=== PATIENT | female | born 1995 | race Caucasian/White ===

== ENCOUNTER 2016-12-01 05:55 | Inpatient (IN) | payer OTHER, MEDICAID ==
[~2016-12-01] VITALS: Ht 162.6 cm; Wt 106.6 kg
--- NOTE | ~2016-12-01 | FD ---
ADMIT: 12/01/2016 RM/LOC: 228 [facility] MR#: [id number] [address] WILMAN CUTLER [address] [address] Final Diagnosis SEX: F AGE: 21 : 1995 ADMISSION DATE: 12/01/2016 DISCHARGE DATE: 12/02/2016 FINAL DIAGNOSES: 1. Intrauterine , 39 weeks 0/7 days. 2. Status post spontaneous vaginal delivery of a liveborn female born at 1417 hours with weight of 7 pounds 9.5 ounces, and scores of 8 and 8 at 1 and 5 minutes respectively. Jose Marcelo MD/ suel JOB #: [id number] CC: Jose Marcelo MD, Attending Physician Jose Marcelo MD, Family Physician
--- NOTE | ~2016-12-01 | HP ---
ADMIT: 12/01/2016 RM/LOC: 228 [facility] MR#: [id number] [id number] [address] [place] [address] History and Physical SEX: F AGE: 21 : 1995 DATE OF SERVICE: CHIEF COMPLAINT: Contractions. HISTORY OF PRESENT ILLNESS: Wilman is a very pleasant 21-year-old, 2, para 1, with intrauterine at 39 weeks and 0/7 days, presented to Labor and Delivery early this morning with complaints of contractions. They started approximately at 0330 hours this morning and progressively intensified, therefore, she presented for evaluation. She was found to be in active labor, membranes intact and approximately 6 cm dilated, around 630 this morning. Her has been uncomplicated. She is Rh negative and did receive RhoGAM. Otherwise, she has faithfully followed up with routine care. PAST MEDICAL HISTORY: Benign. MEDICATIONS: vitamin and Diclegis. ALLERGIES: NO KNOWN DRUG ALLERGIES. PREVIOUS HISTORY: Vaginal delivery in 2014 of a male . SOCIAL HISTORY: No alcohol, drug, or tobacco use. Father of the baby involved. FAMILY HISTORY: Noncontributory. REVIEW OF SYSTEMS: A 10-point review of systems obtained per HPI, otherwise negative. PHYSICAL EXAMINATION: VITAL SIGNS: Blood pressure 124/79, pulse 97, respirations 16, temperature 97.3. GENERAL: Alert and oriented x3. Does not appear in any acute distress. She has received her epidural, seems to be working well, and seems comfortable. HEENT: Pupils equal, round, and reactive. Extraocular muscles intact. Throat clear. Trachea midline. HEART: Regular rate and rhythm. No murmurs. LUNGS: Clear to auscultation bilaterally. ABDOMEN: Soft. Gravid. Cervical check shows 7.5 cm dilated, 80% effaced, and 0 station with head engaged. Contractions every 1 to 3 minutes on tocometer. heart tones, category I. EXTREMITIES: With trace edema. LABORATORY DATA: Hemoglobin 13.7. Urine protein and glucose negative. LABORATORY: Blood type A positive, antibody negative, serology nonreactive, rubella immune, HIV negative, GBS negative, GC/Chlamydia ADMIT: 12/01/2016 RM/LOC: 228 [facility] MR#: [id number] [id number] [address] [place] [address] History and Physical SEX: F AGE: 21 : 1995 negative, hepatitis B surface antigen negative. ASSESSMENT: A 21-year-old with; 1. Active labor. 2. Intrauterine at 39 weeks and 0/7 days. 3. Group B strep negative. 4. Rh negative. PLAN: Artificial rupture of membranes performed at approximately 1025 hours, noting clear fluid, no cords. We will continue with expectant management in active management of labor if needed. Continue otherwise routine maternal monitoring. Jose Marcelo MD/ mayo JOB #: [id number] CC: Jose Marcelo MD, Attending Physician Jose Marcelo MD, Family Physician
[~2016-12-01 05:55] MED LIST: MOTRIN-DPS800 MG PO; PRENATAL VITAM1 EAC4 PO; [UNRECOGNIZED DRUG - OTHER] TP
--- NOTE | 2016-12-02 07:52 | OR ---
ADMIT: 12/01/2016 RM/LOC: 228 [facility] MR#: [id number] [address] OMAYRA WILMAN [address] [address] Operative/Delivery Room Report SEX: F AGE: 21 : 1995 SURGERY DATE: 12/01/2016 SURGEON: Jose Marcelo MD PREOPERATIVE DIAGNOSES: 1. Active labor. 2. Intrauterine at 39 weeks and 0/7 days. 3. Group B streptococcus negative. 4. Rh negative. POSTOPERATIVE DIAGNOSES: 1. Spontaneous vaginal delivery. 2. Active labor. 3. Intrauterine at 39 weeks and 0/7 days. 4. Group B streptococcus negative. 5. Rh negative. PROCEDURES: Spontaneous vaginal delivery. FINDINGS: 1. Live-born female born at 1417 hours with a weight of 7 pounds 9.5 ounces and scores of 8 and 8 at 1 and 5 minutes respectively. 2. Intact placenta with three vessel cord. ANESTHESIA: Epidural. FLUIDS: Crystalloid. ESTIMATED BLOOD LOSS: 300 mL. COMPLICATIONS: None immediate. INDICATIONS FOR PROCEDURE: Please refer to dictated H and P. Briefly, this is a 21-year-old, 2, para 1, with intrauterine at 39 weeks, presented to Labor and Delivery on the day of delivery with complaints of contractions. It started approximately 0330 hours this morning. She came in at approximately 0060 hours to 0630 hours, found to be in active labor, 6 cm dilated, membranes intact. The patient received epidural. Progressed over the next few hours. She was found to be 7.5 cm at 1025 hours, artificial rupture membranes was performed showing clear fluid. The patient continued to progress without further augmentation to the point of being complete at approximately 1340 hours. The patient began pushing bringing the 's vertex to the perineum. Continuous maternal monitoring was done throughout labor and was reassuring. PROCEDURE: The patient was in the dorsal lithotomy position, draped in the usual fashion. She was asked to push, delivering the infant's head in the OA position. After restitution of the head, no nuchal cords were noted, and the left anterior shoulder followed by the posterior shoulder and remainder of the ADMIT: 12/01/2016 RM/LOC: 228 [facility] MR#: [id number] [address] [place] [address] Operative/Delivery Room Report SEX: F AGE: 21 : 1995 infant was down without any difficulty. was noted to be vigorous and crying. Infant was held below maternal abdomen for approximately 30 to 45 seconds for delayed clamping and nasal mouth bulb suction. stimulated. Then transferred to maternal abdomen, where nursing personnel were in attendance. Cord was clamped x2 and cut by the father at the bedside. Cord blood obtained. Placenta delivered in less than 5 minutes intact, clear. Attention was then turned to the vaginal vault, cervix, and perineum which were noted to be free of laceration. There was a small periurethral labial minora laceration that was not bleeding, therefore it was not repaired. The uterus was noted to be firm. Twenty units of Pitocin was started in IV bag to help firm the uterus. There were no other major complications or events during the delivery. Infant and mother were in stable condition. All sponge and needle counts were correct. Jose Marcelo MD/ mayo JOB #: [id number] CC: Jose Marcelo MD, Attending Physician Jose Marcelo MD, Family Physician
[2016-12-03] MEDS ORDERED: NIPPLECREAM TP (17:50)
== END 2016-12-02 16:10 | disposition home or self-care (01) | DRG 775 ==
LOC: 2LDRP 05:55 → BC 05:55 → 2LDRP 06:33 → BC 12-08 08:00
PROVIDERS: ADMIT Family Medicine
PROC: 10907ZC Drainage of Amniotic Fluid, Therapeutic from Products of Conception, Via Natural or Artificial Opening (ICD-10-PCS; principal; 2016-12-01)
PROC: 10E0XZZ Delivery of Products of Conception, External Approach (ICD-10-PCS; principal; 2016-12-01)
DX: O80 Encounter for full-term uncomplicated delivery (principal); Z37.0 Single live birth; Z3A.39 39 weeks gestation of pregnancy